=== PATIENT | male | born 1980 | race Caucasian/White ===

== ENCOUNTER 2017-06-28 06:02 | Emergency (ER) | payer MEDICAID, MEDICARE ==
[~2017-06-28] VITALS: Ht 170.2 cm; Wt 84.9 kg
[2017-06-28] MEDS ORDERED: ONDANSETRON 2MG/ML, 2ML IVPush ONE (06:30)
[2017-06-28] MEDS ORDERED: SODIUM CHLORIDE 0.9% 1,000ML IVBOLUS ONE (06:30)
[2017-06-28] MEDS ORDERED: ONDANSETRON 2MG/ML, 2ML ONE (06:45)
[2017-06-28] MEDS ORDERED: morphine SULFATE 10 MG/ML, 1ML ONE (06:45)
[2017-06-28 06:47] LABS: BASOPHILS # (AUTO) 0.03 x10^3/uL (0-0.1); BASOPHILS % (AUTO) 1 % (0-1); EOSINOPHILS # (AUTO) 0.13 x10^3/uL (0-0.4); EOSINOPHILS % (AUTO) 2 % (1-7); LYMPHOCYTES # (AUTO) 1.98 x10^3/uL (1-3.4); LYMPHOCYTES % (AUTO) 27 % (22-44); MD NO; MEAN CORPUSCULAR HEMOGLOBIN 29.6 pg (27.5-34.5); MEAN CORPUSCULAR HGB CONC 33.7 g/dL (33.2-36.2); MEAN CORPUSCULAR VOLUME 87.8 fL (81-97); MEAN PLATELET VOLUME 9.1 fL (7.4-10.4); MONOCYTES # (AUTO) 0.49 x10^3/uL (0.2-0.8); MONOCYTES % (AUTO) 7 % (2-9); NEUTROPHILS # (AUTO) 4.71 x10^3/uL (1.8-6.8); NEUTROPHILS % (AUTO) 64 % (42-75); PLATELET COUNT 165 x10^3/uL (130-400); RED BLOOD COUNT 5.87 x10^6/uL (4.38-5.82); RED CELL DISTRIBUTION WIDTH 12.8 % (9.4-14.8)
[2017-06-28 07:00] LABS: ALBUMIN 4.3 g/dL (3.4-5.0); ANION GAP 8 mmol/L (5-15); CALCIUM 9.4 mg/dL (8.5-10.1); CHLORIDE 110 mmol/L (98-107)
[2017-06-28] MEDS ORDERED: MORPHINE SULFATE 4 MG/ML, 1ML IVPush PRN (07:00)
[2017-06-28 07:04] LABS: ALANINE AMINOTRANSFERASE 27 U/L (12-78); ALKALINE PHOSPHATASE 54 U/L (45-117); BILIRUBIN,TOTAL 1.8 mg/dL (0.2-1.0); CREATININE 1.04 mg/dL (0.7-1.3); TOTAL PROTEIN 7.9 g/dL (6.4-8.2)
[2017-06-28 08:12] VITALS: BP 105/63
[2017-06-28 08:28] LABS: MICROSCOPIC INDICATED
[2017-06-28 08:38] LABS: CULTURE INDICATED? NO
[2017-06-28] MEDS ORDERED: OMNIPAQUE 350 MG/ML, 100ML BOTTLE ONE (09:05)
== END 2017-06-28 09:29 | disposition home or self-care (01) ==
LOC: ED 09:18
DX: R10.11 Right upper quadrant pain (principal); F17.210 Nicotine dependence, cigarettes, uncomplicated
CPT/HCPCS: 36415; 74177; 76700; 80053; 81001; 83690; 85025; 96361; 96374; 96375; 99285; J2405; J7030; Q9967

== ENCOUNTER 2019-12-06 23:41 | Emergency (ER) | payer SELFPAY ==
[~2019-12-06] VITALS: Ht 170.2 cm; Wt 89.6 kg
[2019-12-07] MEDS ORDERED: CARBAMIDE PEROXIDE EAR DROPS 6.5%, 15ML RIGHT EAR ONE
[2019-12-07] MEDS ORDERED: CARBAMIDE PEROXIDE EAR DROPS 6.5%, 15ML ONE (00:18)
--- NOTE | 2019-12-07 00:51 | NUR ---
Report received and care assumed. Awaiting ERP recheck.
[2019-12-07 01:03] VITALS: BP 120/70
== END 2019-12-07 01:04 | disposition home or self-care (01) ==
LOC: ED 12-07 00:45
DX: H61.21 Impacted cerumen, right ear (principal)
CPT/HCPCS: 69209; 69210; 99282; 99284

== ENCOUNTER 2020-06-16 08:58 | Emergency (ER) | payer SELFPAY ==
[~2020-06-16] VITALS: Ht 170.2 cm; Wt 93.0 kg
--- NOTE | 2020-06-16 09:30 | NUR ---
Assumed care of patient. NAD. Resting comfortably in [facility].
--- NOTE | 2020-06-16 10:11 | NUR ---
REPORT RECEIVED FROM THIERNO. PT RESTING ON TRISTAN. STATES HE IS WRITING DOWN HIS SYMPTOMS ON HIS PHONE TO SHARE WITH THE DOCTOR. STATES NO ADDITIONAL NEEDS AT THIS TIME.
--- NOTE | 2020-06-16 12:10 | NUR ---
PSYCH PROVIDER AT BEDSIDE
[2020-06-16 12:15] VITALS: BP 144/95
--- NOTE | 2020-06-16 12:17 | NUR ---
PT RESTING ON TRISTAN. PSYCH PROVIDER FINISHED ASSESSMENT. ADIA. KIAN.
--- NOTE | 2020-06-16 12:30 | NUR ---
PT TO DISCHARGE WITH A STEADY GAIT. PT ENCOURAGED TO FOLLOW-UP DISCUSSED. PT EDUCATED TO RETURN TO THE ED WITH WORSENING SYMPTOMS OR CHANGES IN CONDITION.
== END 2020-06-16 12:31 | disposition home or self-care (01) ==
LOC: ED 10:50
DX: F28 Other psychotic disorder not due to a substance or known physiological condition (principal); F41.9 Anxiety disorder, unspecified
CPT/HCPCS: 70450; 99284

== ENCOUNTER 2020-06-28 20:21 | Emergency (ER) | payer MEDICAID ==
[~2020-06-28] VITALS: Ht 170.2 cm; Wt 92.2 kg
[2020-06-28] MEDS ORDERED: LIDOCAINE-MPF 1%, 5ML ONE (20:55)
[2020-06-28] MEDS ORDERED: LIDOCAINE-MPF 1%, 5ML INFIL ONE (21:00)
--- NOTE | 2020-06-28 21:07 | NUR ---
Provider at bedside performing I&D on pt.'s elbow abscess.
[2020-06-28 21:23] VITALS: BP 121/80
== END 2020-06-28 21:50 | disposition home or self-care (01) ==
LOC: ED 21:11
DX: L03.114 Cellulitis of left upper limb (principal); L02.412 Cutaneous abscess of left axilla
CPT/HCPCS: 10060; 99283

== ENCOUNTER 2020-08-03 19:16 | Emergency (ER) | payer MEDICAID ==
[~2020-08-03] VITALS: Ht 170.2 cm; Wt 93.4 kg
[2020-08-03 19:24] VITALS: BP 111/68
[2020-08-03] MEDS ORDERED: CYCLOBENZAPRINE 10 MG TABLET ONE (19:47)
--- NOTE | 2020-08-03 19:53 | NUR ---
CC OF UPPER AND MID BACK SPASMS. PT REQUESTING ANTI-INFLAMATORY TO HELP AND NON NARCOTIC PAIN MEDICATION SINCE HE DONATES PLASMA. PT STATES ITS HARD FOR HIM TO MOVE. SO AT BESIDE
[2020-08-03] MEDS ORDERED: CYCLOBENZAPRINE 10 MG TABLET PO ONE (20:00)
--- NOTE | 2020-08-03 20:35 | NUR ---
PT REPORTS FEELING IMPROVEMENT AFTER PAIN MEDICATION.
== END 2020-08-03 20:47 | disposition home or self-care (01) ==
LOC: ED 20:25
DX: M62.830 Muscle spasm of back (principal)
CPT/HCPCS: 99283; J7512